=== PATIENT | female | born 2000 | race African-American/Black ===

== ENCOUNTER 2022-02-03 12:00 | Inpatient (IN) | payer MEDICAID, OTHER ==
[~2022-02-03 12:00] MED LIST: Bicitra 30 ML UDCUP PO PRN; Famotidine/PF 20 mg/2ml Vial SLOW IVP PRN; Lactated Ringer's 1,000 ML IV SCH; Ondansetron PF 4 MG/2 ML Vial IVP PRN; Promethazine HCl 25 MG/ML VIAL IM PRN; ceFAZolin 2 GM/Dextrose 50 ML 2 GM in Premix Bag 1 BAG IVPB SCH; hydrALAZINE 20 MG/ML VIAL SLOW IVP PRN
[2022-02-03 16:39] VITALS: BMI 33.6
[2022-02-03 17:28] LABS: SARS-CoV-2 NAA Rapid Test Not Detected (NotDetected)
[2022-02-03] MEDS ORDERED: ceFAZolin 2 GM/Dextrose 50 ML IVPB ONE (17:35)
[2022-02-03] MEDS ORDERED: Morphine PF 10 MG/10 ML VIAL ONE (17:54)
[2022-02-03] MEDS ORDERED: Oxytocin 10 UNITS/ML VIAL ONE (17:54)
[2022-02-03] MEDS ORDERED: PHENYLEPHRINE-NS 100 MCG/ML 10 ML SYRINGE ONE (17:54)
[2022-02-03 19:13] LABS: Syphilis Antibody Nonreactive (Nonreactive); Syphilis Antibody Index 0.06 S/CO (<1.00 Non-Reactive)
[2022-02-03 19:14] LABS: HIV (1/2) Antibody/Antigen Non-Reactive (NonReactive); HIV 1/2 INDEX 0.07 S/CO (<1.00); Hep B Surf Ag Non-Reactive S/CO (NonReactive)
[2022-02-03] MEDS ORDERED: NS w/ Oxytocin 30 units 500 ML IV SCH (20:49)
[2022-02-03] MEDS ORDERED: HYDROcodone/Acetaminophen 5/325 mg Tablet PO PRN ×2 (20:49)
[2022-02-03] MEDS ORDERED: hydrALAZINE 20 MG/ML VIAL SLOW IVP PRN (20:49)
[2022-02-03] MEDS ORDERED: Promethazine HCl 25 MG/ML VIAL IM PRN ×2 (20:49→23:40)
[2022-02-03] MEDS ORDERED: Boostrix 0.5 ML (Tdap) VIAL IM ONE (20:49)
[2022-02-03] MEDS ORDERED: Ondansetron PF 4 MG/2 ML Vial IVP PRN ×2 (20:49→23:40)
[2022-02-03] MEDS ORDERED: diphenhydrAMINE 25 MG CAP PO PRN (20:49)
[2022-02-03] MEDS ORDERED: Bisacodyl 10 MG SUPP PR PRN (20:49)
[2022-02-03] MEDS ORDERED: NS w/ Oxytocin 30 units 500 ML ONE (20:59)
[2022-02-03] MEDS: Ferrous Sulfate 325 MG TAB PO SCH (22:52)
[2022-02-03] MEDS: Docusate 100 MG CAP PO SCH (22:53)
[2022-02-03] MEDS ORDERED: Naloxone HCl 0.4 mg/ml Vial IVP PRN ×2 (23:40)
[2022-02-03] MEDS ORDERED: diphenhydrAMINE 50 MG/ML VIAL IVP PRN (23:40)
[2022-02-03] MEDS ORDERED: Ondansetron HCl/PF 4 MG/2 ML Vial IVP PRN (23:40)
[2022-02-03] MEDS ORDERED: Promethazine HCl 25 MG SUPP PR PRN (23:40)
[2022-02-03] MEDS ORDERED: Fentanyl 100 MCG/2 ML VIAL SLOW IVP PRN (23:40)
[2022-02-03] MEDS ORDERED: Ketorolac Tromethamine 30 MG/ML VIAL IVP PRN (23:40)
[2022-02-03] MEDS ORDERED: Naloxone HCl 0.4 mg/ml Vial IV PRN (23:40)
[2022-02-03] MEDS ORDERED: Meperidine HCl/PF 25 MG/ML VIAL SLOW IVP PRN (23:40)
[2022-02-03] MEDS ORDERED: Moisturizing Cream (Eucerin) 113 GM JAR TOP PRN (23:40)
[2022-02-03] MEDS ORDERED: Communication Order-Pharmacy FS SCH (23:45)
[2022-02-03] MEDS ORDERED: Ketorolac Tromethamine 30 MG/ML VIAL IVP SCH (23:45)
[2022-02-04] MEDS ORDERED: Ketorolac Tromethamine 30 MG/ML VIAL IVP SCH
[2022-02-04 05:24] LABS: Hemoglobin 9.4 g/dL (12.0-15.5); Mean Corpuscular HGB CONC 31.2 g/dL (32.0-36.0); Mean Corpuscular Hemoglobin 22.9 pg (27.0-33.0); Mean Corpuscular Volume 73.4 fl (81.6-98.3); Mean Platelet Volume 10.4 fl (7.4-10.4); Platelet Count 157 10x3/uL (150-450); RBC Distribution Width 16.8 % (11.5-14.5); White Blood Cell (WBC) Count 6.9 10x3/uL (3.5-10.5)
[2022-02-04] MEDS: Prenatal Vitamin 1 TAB PO SCH (09:08)
[2022-02-04] MEDS: Ferrous Sulfate 325 MG TAB PO SCH ×2 (09:08→21:14)
[2022-02-04] MEDS: Docusate 100 MG CAP PO SCH ×2 (09:08→21:14)
[2022-02-04] MEDS: Simethicone Chewable 80 MG TAB PO PRN ×2 (09:08→17:35)
[2022-02-04] MEDS: HYDROcodone/Acetaminophen 5/325 mg Tablet PO PRN ×2 (11:30→17:29)
[2022-02-04] MEDS: Ibuprofen 800 MG TAB PO SCH ×2 (13:56→21:14)
[2022-02-05] MEDS: Ibuprofen 800 MG TAB PO SCH ×3 (05:28→21:18)
[2022-02-05] MEDS: HYDROcodone/Acetaminophen 5/325 mg Tablet PO PRN ×4 (06:34→21:23)
[2022-02-05] MEDS: Docusate 100 MG CAP PO SCH ×2 (08:54→21:19)
[2022-02-05] MEDS: Prenatal Vitamin 1 TAB PO SCH (08:54)
[2022-02-05] MEDS: Ferrous Sulfate 325 MG TAB PO SCH ×2 (08:55→21:19)
[2022-02-05] MEDS: Simethicone Chewable 80 MG TAB PO PRN ×2 (09:03→21:19)
[2022-02-06] MEDS: Simethicone Chewable 80 MG TAB PO PRN (06:08)
[2022-02-06] MEDS: Ibuprofen 800 MG TAB PO SCH ×2 (06:08→15:02)
[2022-02-06] MEDS: HYDROcodone/Acetaminophen 5/325 mg Tablet PO PRN ×2 (06:09→15:06)
[2022-02-06] MEDS: Prenatal Vitamin 1 TAB PO SCH (08:26)
[2022-02-06] MEDS: Ferrous Sulfate 325 MG TAB PO SCH (08:26)
[2022-02-06] MEDS: Docusate 100 MG CAP PO SCH (08:26)
[2022-02-06 08:31] VITALS: BP 117/77; TEMP 98.7
== END 2022-02-06 15:55 | disposition home or self-care (01) | DRG 788 ==
LOC: CSHLD 15:05 → CSHPP 22:10
PROVIDERS: ADMIT Family Medicine; ATTEND Family Medicine
PROC: 10D00Z1 Extraction of Products of Conception, Low, Open Approach (ICD-10-PCS; principal; 2022-02-03)
DX: O34.211 Maternal care for low transverse scar from previous cesarean delivery (principal); Z3A.37 37 weeks gestation of pregnancy; Z37.0 Single live birth; O36.5930 Maternal care for other known or suspected poor fetal growth, third trimester, not applicable or unspecified; Z20.822 Contact with and (suspected) exposure to COVID-19; D64.9 Anemia, unspecified; O99.02 Anemia complicating childbirth; F32.A Depression, unspecified; O99.344 Other mental disorders complicating childbirth
CPT/HCPCS: 36415; 51702; 85027; 86780; 86850; 86900; 86901; 87340; 87389; J0690; J1200; J1885; J2274; J2590; U0002